=== PATIENT | male | born 2000 | race Hispanic/Latino ===

== ENCOUNTER 2022-10-03 18:18 | Emergency (ER) | payer BC ==
[~2022-10-03] VITALS: Ht 170.2 cm; Wt 118.6 kg
[2022-10-03] MEDS ORDERED: DICYCLOMINE HCL10 MG PO (20:12)
[2022-10-03 20:18] VITALS: BP 119/78
== END 2022-10-03 20:18 | disposition home or self-care (01) ==
LOC: FSED 18:37
DX: R10.33 Periumbilical pain (principal); F41.9 Anxiety disorder, unspecified
CPT/HCPCS: 74176; 80048; 80076; 81003; 85025; 99284

== ENCOUNTER 2024-03-21 03:17 | Emergency (ER) | payer BC ==
[~2024-03-21] VITALS: Ht 177.8 cm; Wt 104.3 kg
[~2024-03-21 03:17] MED LIST: DICYCLOMINE HCL10 MG PO
[2024-03-21] MEDS ORDERED: SODIUM CHLORIDE 0.9% 1000 ML BAG ONE (04:00)
[2024-03-21] MEDS ORDERED: KETOROLAC TROMETHAMINE 30 MG/ML VIAL ONE ×2 (04:00→04:04)
[2024-03-21] MEDS ORDERED: SODIUM CHLORIDE 0.9% 1000ML 1,000 ML ONE (04:05)
[2024-03-21] MEDS: KETOROLAC TROMETHAMINE 30 MG/ML VIAL IV STA (04:06)
[2024-03-21] MEDS: SODIUM CHLORIDE 0.9% 1000ML 1,000 ML IV STA (04:07)
[2024-03-21] MEDS ORDERED: KETOROLAC TROME10 MG PO (04:08)
[2024-03-21] MEDS ORDERED: CIPRO500 MG PO (04:11)
[2024-03-21] MEDS ORDERED: FLOMAX0.4 MG PO (04:12)
[2024-03-21 04:26] VITALS: BP 130/81; PULSE 89; RESP 18; O2SAT 99
== END 2024-03-21 04:26 | disposition home or self-care (01) ==
LOC: FSED 03:41
DX: R10.32 Left lower quadrant pain (principal); N20.2 Calculus of kidney with calculus of ureter; F41.9 Anxiety disorder, unspecified
CPT/HCPCS: 74176; 99284; J1885; J7030